=== PATIENT | male | born 1975 | race Caucasian/White ===

== ENCOUNTER 2019-07-18 18:54 | Emergency (ER) | payer OTHER ==
--- NOTE | 2019-07-18 19:48 | Emergency Department Record ---
History of Present Illness - General Stated Complaint: COUGH,BACK PAIN Time Seen by Provider: 07/18/19 19:40 Source: Patient Mode of Arrival: Ambulatory Limitations: No limitations - History of Present Illness Initial Comments: 44 yo male presents to ED for evaluation of non-productive cough symptoms for 1 week. Patient reports back pain symptoms form his coughing fits, denies fever but does report "cold sweats". Patient reports a history of asthma previously, did not receive influenza vaccination this year. Patient reports that his mother was concerned about possible pneumonia. MD Complaint: Cough Onset/Timin -: Week(s) Severity: Moderate Consistency: Constant Improves With: Nothing Worsens With: Nothing Associated Symptoms: Chills, Cough Treatments Prior to Arrival: None - Related Data Home Medications Medication Instructions Recorded Confirmed Last Taken Aspirin/Acetaminophen/Caffeine 1 tab PO DAILY PRN 07/18/19 07/18/19 Unknown [Excedrin Migraine Caplet] Guaifenesin/Dextromethorphan 1 each PO DAILY 07/18/19 07/18/19 Unknown [Mucus Rlf Dm ER 600-30 mg Tab] Loratadine/Pseudoephedrine 1 tab PO DAILY 07/18/19 07/18/19 Unknown [Claritin-D 24 Hour Tablet] Previous Rx's Medication Instructions Recorded Doxycycline Hyclate 100 mg PO BID #13 cap 07/18/19 Prednisone [Prednisone 20Mg] 20 mg PO BID #10 tab 07/18/19 Allergies Allergy/AdvReac Type Severity Reaction Status Date / Time No Known Drug Allergies Allergy Verified 07/18/19 19:53 Review of Systems Constitutional: Reports: Fever. Denies: Chills, Malaise, Night sweats Eyes: Denies: Eye discharge, Eye pain ENT: Reports: Throat pain. Denies: Congestion, Ear pain, Epistaxis Respiratory: Reports: Cough Cardiovascular: Denies: Chest pain, Dyspnea on exertion, Edema Endocrine: Denies: Fatigue, Heat or cold intolerance Gastrointestinal: Denies: Abdominal pain, Nausea, Vomiting Genitourinary: Denies: Incontinence, Retention Musculoskeletal: Denies: Arthralgia, Back pain Skin: Denies: Bruising, Change in color Neurological: Denies: Abnormal gait, Confusion, Headache, Seizure Psychiatric: Denies: Anxiety Hematological/Lymphatic: Denies: Anemia, Blood Clots Physical Exam - General General Appearance: Alert, Oriented x3, Cooperative, Mild distress Limitations: No limitations - Head Head exam: Atraumatic, Normocephalic, Normal inspection Head exam detail: negative: Abrasion, Contusion, Davis's sign, General tenderness, Hematoma, Laceration - Eye Eye exam: Normal appearance. negative: Conjunctival injection, Periorbital swelling, Periorbital tenderness, Scleral icterus - ENT Ear exam: negative: Auricular hematoma, Auricular trauma Nasal Exam: negative: Active bleeding, Discharge, Dried blood, Foreign body Mouth exam: negative: Drooling, Laceration, Muffled voice, Tongue elevation - Neck Neck exam: Normal inspection. negative: Meningismus, Tenderness - Respiratory Respiratory exam: Normal lung sounds bilaterally. negative: Rales, Respiratory distress, Rhonchi, Stridor - Cardiovascular Cardiovascular Exam: Regular rate, Normal rhythm, Normal heart sounds - GI/Abdominal GI/Abdominal exam: Soft. negative: Rebound, Rigid, Tenderness - Rectal Rectal exam: Deferred - exam: Deferred - Extremities Extremities exam: Normal inspection. negative: Pedal edema, Tenderness - Back Back exam: Denies: CVA tenderness (R), CVA tenderness (L) - Neurological Neurological exam: Alert, Normal gait, Oriented X3 - Psychiatric Psychiatric exam: Normal affect, Normal mood - Skin Skin exam: Normal color. negative: Abrasion Type of lesion: negative: abrasion Course Vital Signs 07/18/19 19:42 Temperature 98.7 F Pulse Rate [ 83 Right] Respiratory 20 Rate Blood Pressure 122/80 [Left Arm] Pulse Ox 99 - Reevaluation(s) Reevaluation #1: 07/18/19 20:19 CXR: No acute process Influenza: negative Patient was updated on all results Will treat with Prednisone and Doxycycline as directed. Patient appears stable for discharge at this time. Disposition Disposition: Discharge Clinical Impression: Acute bronchitis Qualifiers: Bronchitis organism: unspecified organism Qualified Code(s): J20.9 - Acute bronchitis, unspecified Disposition: Home, Self-Care Condition: (2) Stable Instructions: Acute Bronchitis (ED) Additional Instructions: Return to ED if your symptoms worsen or if you have any concerns. Doxycycline and prednisone as directed. Follow-up with your family doctor in 3-5 days as directed. Prescriptions: Doxycycline Hyclate 100 mg PO BID #13 cap Prednisone [Prednisone 20Mg] 20 mg PO BID #10 tab Forms: Patient Portal Access Time of Disposition: 20:41 Quality - Quality Measures Quality Measures: N/A, Adult Bronchitis (18-64yr) - Adult Bronchitis Quality Measure: Measure #116: Avoidance of ABX w/Adult Bronchitis ICD10 Codes Entered: Yes Is patient being admitted: No Avoidance of ABX w/Bronchitis: Medical Reason for prescribing ABX [G9712] Medical Reason For Rx: Bacterial infection - Blood Pressure Screening Does Patient Have Any of the Following: No Blood Pressure Classification: Pre-Hypertensive BP Reading Systolic Measurement: 122 Diastolic Measurement: 80 Screening for High Blood Pressure: < Pre-Hypertensive BP, F/U Documented > [G8950] Pre-Hypertensive Follow-up Interventions: Referral to alternative/primary care provider.
--- NOTE | 2019-07-18 20:11 | RADIOLOGY REPORT ---
EXAMINATION: Two View Chest Radiographs EXAM DATE: 07/18/2019 8:07 PM TECHNIQUE: Frontal and lateral views INDICATION: cough COMPARISON: None ENCOUNTER: Not applicable FINDINGS: The heart, mediastinum, and pulmonary vasculature are normal. No lung consolidation or pleural effu sions are present. Bilateral apical pleural scarring. IMPRESSION: Negative for active intrathoracic disease Dictated by: Tanya Gandhi MD on 07/18/2019 8:08 PM. .
[2019-07-18 20:20] LABS: INFLUENZA A NEGATIVE (NEGATIVE)
[2019-07-18 20:21] LABS: INFLUENZA B NEGATIVE (NEGATIVE)
[2019-07-18] MEDS ORDERED: DOXYCYCLINE HYCLATE 100 MG CAPSULE PO ONE (20:42)
[2019-07-18] MEDS ORDERED: PREDNISONE 20 MG TAB PO ONE (20:42)
== END 2019-07-18 21:00 | disposition home or self-care (01) ==
LOC: ER 18:54
DX: J20.9 Acute bronchitis, unspecified (principal); R05 Cough
CPT/HCPCS: 99283 ×2; 87400; 71046; J7512